=== PATIENT | female | born 1990 | race Caucasian/White ===

== ENCOUNTER 2020-02-12 12:19 | Emergency (ER) | payer MEDICARE ==
[~2020-02-12] VITALS: Ht 177.8 cm; Wt 70.3 kg
--- OUTSIDE RECORDS SUMMARY | 2020-02-12 12:22 | XMS ---
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 Isaac has no Care Guidelines for this patient. Joslyn VISIT COUNT (12 MO.) 1 ANGEL Tamez TOTAL 1 NOTE: Visits indicate total known visits. ED/C VISIT TRACKING (12 MO.) 02/12/2020 12:21 ANGEL Seg[facility] OR TYPE: Emergency COMPLAINT: - BACK PAIN, BLOOD IN URINE INPATIENT VISIT TRACKING (12 MO.) No inpatient visits to display in this time frame [email or web address]
== END 2020-02-12 14:54 | disposition home or self-care (01) ==
LOC: ED 12:19
DX: M54.9 Dorsalgia, unspecified (principal); R31.9 Hematuria, unspecified
CPT/HCPCS: 74176; 81001; 84703; 99284-25